=== PATIENT | female | born 1960 | race Hispanic/Latino ===

== ENCOUNTER 2018-05-07 06:12 | Day surgery (SDC) | payer OTHER ==
[2018-05-07] MEDS ORDERED: WATER FOR IRRIG STERILE IR ONE (07:18)
[2018-05-07] MEDS ORDERED: WATER FOR IRRIG STERILE ONE (07:18)
[2018-05-07] MEDS ORDERED: XYLOCAINE 2% INFILTRATI ONE (07:42)
[2018-05-07] MEDS ORDERED: VERSED IV ONE (07:42)
[2018-05-07] MEDS ORDERED: DIPRIVAN 10 MG/ML IV ONE ×2 (07:42)
[2018-05-07] MEDS ORDERED: NACL 0.9% 1000 ML 1,000 ML IV SCH (08:00)
--- NOTE | 2018-05-07 08:24 | Short Stay Summary ---
Short Stay Documentation - Allergies and Medications Current Medications: Allergies codeine Adverse Reaction (Verified 05/07/18 07:09) Unknown Home Medications Medication Instructions Recorded Confirmed Last Taken Type Clopidogrel 1 tab PO DAILY 05/06/18 05/07/18 04/28/18 History Losartan 1 tab PO DAILY 05/06/18 05/06/18 05/06/18 History QUEtiapine 1 tab PO HS 05/06/18 05/06/18 05/06/18 History Simvastatin 1 tab PO HS 05/06/18 05/06/18 05/06/18 History Venlafaxine 1 cap PO DAILY 05/06/18 05/06/18 05/06/18 History Vitamin D2 1 cap PO DAILY 05/06/18 05/06/18 05/06/18 History clonazePAM 1 tab PO QAM&QHS MDD 1.5 05/06/18 05/06/18 05/06/18 History metFORMIN 1 tab PO BID 05/06/18 05/06/18 05/06/18 History Active Medications Sodium Chloride (Nacl 0.9% 1000 Ml) 1,000 mls @ 50 mls/hr IV DIRECT VERONIQUE Last Admin: 05/07/18 07:41 Dose: 50 mls/hr - Brief post op/procedure progress note Date of procedure: 05/07/18 Pre-op diagnosis: Colon cancer screening Post-op diagnosis: same (1. Internal hemorrhoids 2. Poor prep) Procedure: Colonoscopy Anesthesia: MAC Findings: as above Surgeon: ARNOL FLORES Estimated blood loss: none Pathology: none Condition: stable - Disposition Condition at discharge: Stable Disposition: DC-01 TO HOME OR SELFCARE Short Stay Discharge Plan Activity: no restrictions Weight Bearing Status: Full Weight Bearing Diet: regular, low salt Follow up with: TEODORO ROBINS MD [Other] - 7 Days
--- NOTE | 2018-05-07 08:25 | Anesthesia Day of Surgery ---
Anesthesia Day of Surgery - Day of Surgery Patient Examined: Yes Patient H&P Reviewed: Yes Patient is NPO: Yes Beta Blockers: No
--- NOTE | 2018-05-07 08:26 | Anesthesia Consultation ---
Anesthesia Consult and Med Hx - Airway Anesthetic Teeth Evaluation: Good ROM Head & Neck: Adequate Mental/Hyoid Distance: Adequate Mallampati Class: Class III Intubation Access Assessment: Good - Pulmonary Exam CTA: No - Cardiac Exam Cardiac Exam: RRR - Pre-Operative Health Status ASA Pre-Surgery Classification: ASA3 Proposed Anesthetic Plan: MAC - Cardiovascular System Hx Hypertension: Yes - Central Nervous System CVA: Yes Hx Psychiatric Problems: Yes - Other Systems Hx Alcohol Use: No Hx Obesity: Yes
[2018-05-07 08:43] VITALS: BP 127/74
== END 2018-05-07 06:13 | disposition home or self-care (01) ==
LOC: GIO 06:12
PROVIDERS: ATTEND Internal Medicine Gastroenterology
DX: K64.0 First degree hemorrhoids (principal); K92.1 Melena; I10 Essential (primary) hypertension; F32.9 Major depressive disorder, single episode, unspecified; F41.9 Anxiety disorder, unspecified; E66.9 Obesity, unspecified; Z68.37 Body mass index [BMI] 37.0-37.9, adult; Z88.5 Allergy status to narcotic agent; Z79.899 Other long term (current) drug therapy; Z79.84 Long term (current) use of oral hypoglycemic drugs; Z83.3 Family history of diabetes mellitus; Z82.49 Family history of ischemic heart disease and other diseases of the circulatory system; Z90.710 Acquired absence of both cervix and uterus; Z86.73 Personal history of transient ischemic attack (TIA), and cerebral infarction without residual deficits; Z87.891 Personal history of nicotine dependence
CPT/HCPCS: 45378; 82962; J2250; J2704; J7030